=== PATIENT | male | born 1975 | race Caucasian/White ===

== ENCOUNTER 2020-05-04 05:43 | Day surgery (SDC) | payer BC ==
[~2020-05-04] VITALS: Ht 172.7 cm; Wt 77.3 kg
--- NOTE | ~2020-05-04 | OP ---
PATIENT NAME: LEROY VAZQUEZ MEDICAL RECORD: [id number] :77 LOCATION:[facility] ADMISSION DATE: SURGEON: SOHAN GAMBINO MD DATE OF OPERATION: 05/04/2020 PREOPERATIVE DIAGNOSES: Nasal obstruction, septal deviation, and turbinate hypertrophy. POSTOPERATIVE DIAGNOSES: Nasal obstruction, septal deviation, and turbinate hypertrophy. PROCEDURE: Septoplasty and bilateral inferior turbinate reduction. SURGEON: Sohan Gambino MD ANESTHESIA: General orotracheal. BLOOD LOSS: 2 cc. SPECIMENS: None. PACKING: Lloyd splints bilaterally. COMPLICATIONS: None. DISPOSITION: Recovery, stable. DESCRIPTION OF PROCEDURE: He was brought to the operating room and placed in supine position, sedated and intubated by anesthesia. The eyes were taped. Head drape was applied. Both sides of nose were examined using headlight and nasal speculum. Septum, floor of the nose, and inferior turbinates were both injected with a total of 1.5 cc of 1% lidocaine with 1:100,000 epinephrine with a 1-1/2 inch 27-gauge needle and then, both sides of the nose were packed with 3 Afrin pledgets. He was positioned, prepped and draped in the usual fashion. Then, all the Afrin pledgets were removed. A right-sided Martin incision was made. Ipsilateral mucoperichondrial flap was elevated. Caudal was used to make an incision through the cartilage that was rolled out onto the floor of the nose on the right side. This was then removed. A chisel was used to remove a bony spur. Relaxing incisions were made in the cartilage. Incision was made on the left side as well to remove a portion of cartilage that was blocking the nasal sill on the left side. With all that done, small relaxing incisions were made in the cartilage to allow it to lay flat. This allowed the septum to be back in the midline. Both inferior turbinates were medialized with a freer. A Gruenwald was used to take down the inferior redundant portion of the turbinate. Suction cautery on a setting of 20 was used to stop any bleeding and then both outfractured with a Mifflin elevator. The nose was then again examined. Good airway straight back to the nasopharynx on both sides. Incisions on both sides were closed with interrupted 4-0 chromic. Lloyd splints with mupirocin ointment were placed bilaterally and sutured through the anterior membranous septum with a 2-0 Prolene on a Osito needle. There was really no significant bleeding. He was awakened, extubated, and transported to recovery in good condition. No complications. TRANSINT:[id number] Voice Confirmation ID: [id number] DOCUMENT ID: [id number] OPERATIVE REPORT [id number] LEROY VAZQUEZ ERIC MD CC: [id number] DICTATION DATE: 05/04/20941 OUTREACH COORDINATOR: 05/04/20 1256 [facility] [place] 05/04/20 [facility] [address] [place] [address]
[~2020-05-04 05:43] MED LIST: CELEXA40 MG PO
[2020-05-04] MEDS ORDERED: LIPITOR20 MG PO (06:13)
[2020-05-04 06:22] VITALS: BP 122/76; Ht 172.7 cm; Wt 77.3 kg
--- NOTE | 2020-05-04 09:44 | HP ---
PATIENT: LEROY JENKINS MEDICAL RECORD: [id number] ACCOUNT: [id number] LOCATION:[facility] : 77 ADMISSION DATE: 05/04/20 PCP: AUREA ROBLES MD HISTORY AND PHYSICAL EXAMINATION HISTORY OF PRESENT ILLNESS: Mr. Jenkins is a 44-year-old male with chronic nasal obstruction symptoms. He has been refractory to medical management. He has been admitted for septoplasty and bilateral inferior turbinate reduction. PAST MEDICAL HISTORY: Otherwise negative. PAST SURGICAL HISTORY: None. CURRENT MEDICATIONS: None. ALLERGIES: No known drug allergies. PHYSICAL EXAMINATION: GENERAL: Healthy appearing, developmentally normal. FACE: Normal, symmetric, no lesions. EYES: Sclerae and conjunctivae are normal. NOSE: Very tiny nasal airway. Septal deviation and turbinate hypertrophy. ORAL CAVITY AND OROPHARYNX: Tongue protrudes in midline. Pharynx normal. Normal palate. NECK: No masses, no adenopathy. CHEST: Clear. CARDIOVASCULAR: Regular rate and rhythm, no murmur. EXTREMITIES: Normal. IMPRESSION: Nasal obstruction refractory to medical management. PLAN: Septoplasty and bilateral inferior turbinate reduction. TRANSINT:[id number] Voice Confirmation ID: [id number] DOCUMENT ID: [id number] SOHAN AGRAWAL MD at 0944 CC: [id number] DICTATION DATE: 04/29/20 1433 WEB CONSULTANT: 04/29/20 1856 [facility] [address] [place] [address]
--- NOTE | 2020-05-04 10:55 | NUR ---
IV REMOVED WITH TIP INTACT, DISCHARGE INSTRUCTIONS PROVIDED.
== END 2020-05-04 11:00 | disposition home or self-care (01) ==
LOC: D.OPS 05:43
PROVIDERS: ATTEND Otolaryngology
DX: J34.89 Other specified disorders of nose and nasal sinuses (principal); J34.2 Deviated nasal septum; J34.3 Hypertrophy of nasal turbinates